=== PATIENT | male | born 1960 | race Hispanic/Latino ===

== ENCOUNTER → 2017-11-28 | Outpatient (CLI) | payer BC | END | disposition home or self-care (01) | LOC: OIH 09:07 | PROVIDERS: ATTEND Internal Medicine | DX: S93.04XA Dislocation of right ankle joint, initial encounter (principal); M79.89 Other specified soft tissue disorders; X58.XXXA Exposure to other specified factors, initial encounter; Y93.89 Activity, other specified; Y92.89 Other specified places as the place of occurrence of the external cause; Y99.8 Other external cause status | CPT/HCPCS: 73600 ==

== ENCOUNTER → 2019-10-30 | Outpatient (CLI) | payer BC | END | disposition home or self-care (01) | LOC: OIH 09:24 | PROVIDERS: ATTEND Internal Medicine | DX: M24.812 Other specific joint derangements of left shoulder, not elsewhere classified (principal) | CPT/HCPCS: 73030 ==

== ENCOUNTER → 2023-09-27 | Outpatient (CLI) | payer SELFPAY | END | disposition home or self-care (01) | LOC: OIH 10:43 | PROVIDERS: ATTEND Internal Medicine | DX: S80.02XA Contusion of left knee, initial encounter (principal); M17.12 Unilateral primary osteoarthritis, left knee; X58.XXXA Exposure to other specified factors, initial encounter; Y93.89 Activity, other specified; Y92.89 Other specified places as the place of occurrence of the external cause; Y99.8 Other external cause status | CPT/HCPCS: 73562 ==

== ENCOUNTER → 2024-03-23 | Outpatient (CLI) | payer OTHER | END | disposition home or self-care (01) | LOC: RAH 15:45 | PROVIDERS: ATTEND Internal Medicine | DX: M24.851 Other specific joint derangements of right hip, not elsewhere classified (principal); I87.8 Other specified disorders of veins | CPT/HCPCS: 73502 ==

== ENCOUNTER → 2024-06-18 | Outpatient (CLI) | payer OTHER ==
--- NOTE | 2024-06-18 17:04 | HMCIMG ---
KNEE/PATELLA 1-2VWS RT HISTORY: Internal derangement COMPARISON: None TECHNIQUE: 2 images of right knee were obtained. FINDINGS: There is no acute displaced fracture or dislocation. There is soft tissue swelling. Degenerative changes are seen. IMPRESSION: 1. Findings as described above.
== END | disposition home or self-care (01) ==
LOC: OIH 16:27
PROVIDERS: ATTEND Internal Medicine
DX: M17.11 Unilateral primary osteoarthritis, right knee (principal); M70.51 Other bursitis of knee, right knee; M23.90 Unspecified internal derangement of unspecified knee; M25.461 Effusion, right knee
CPT/HCPCS: 73560

== ENCOUNTER → 2024-07-13 | Outpatient (CLI) | payer OTHER ==
--- NOTE | 2024-07-13 15:06 | HMCIMG ---
CT CORONARY CALCIFICATION SCORING: Anatomic images were reviewed. The calcium score is being generated and reported separately. This report is for the visualized anatomy only. Visualized portions of the lungs are clear. Hilar and mediastinal structures appear normal. Osseous structures are unremarkable. Impression: 1. Negative noncardiac anatomic findings. 2. The calcium score is 432 consistent with a significant degree of calcified plaque. This is 75th percentile for a patient this age. CT was performed with one or more following dose reduction techniques: automated exposure control, adjustment of the mA and kv according to patient's size, or use of a iterative reconstruction technique.
== END | disposition home or self-care (01) ==
LOC: RAH 13:16
PROVIDERS: ATTEND Internal Medicine
DX: Z13.6 Encounter for screening for cardiovascular disorders (principal)
CPT/HCPCS: 75571